=== PATIENT | female | born 1960 | race Caucasian/White ===

== ENCOUNTER → 2023-06-17 09:21 | Outpatient (REF) | payer BC, SELFPAY ==
[2023-06-17 10:43] LABS: Iron 103 ug/dl (37-170)
[2023-06-17 10:52] LABS: Percent Saturation 39 % (20-50); Total Iron Binding Capacity 259 ug/dl (265-497)
[2023-06-17 10:56] LABS: Free T4 0.87 ng/dl (0.78-2.19); Vitamin D, 25-OH*** 47.3 ng/mL (30-80)
[2023-06-17 11:10] LABS: TSH 1.21 uIU/ml (0.47-4.68)
[2023-06-17 11:19] LABS: Ferritin 62.3 ng/ml (11.1-264.0)
== END ==
LOC: REG 09:21
PROVIDERS: ATTENDING PHYSICIAN Physician Assistant
DX: Z00.00 Encounter for general adult medical examination without abnormal findings (principal); Z13.9 Encounter for screening, unspecified; R73.03 Prediabetes; Z85.3 Personal history of malignant neoplasm of breast; R91.1 Solitary pulmonary nodule; E78.5 Hyperlipidemia, unspecified; I10 Essential (primary) hypertension; K57.90 Diverticulosis of intestine, part unspecified, without perforation or abscess without bleeding
CPT/HCPCS: 36415; 82306; 82728; 83540; 83550; 84439; 84443

== ENCOUNTER → 2023-06-19 08:02 | Outpatient (REF) | payer BC, SELFPAY ==
[2023-06-19 08:20] LABS: % Basophils 0.6 % (0-2); % Eosinophils 3.2 % (0-6); % Immature Granulocytes 0.2 % (0-0.5); % Lymphocytes 44.7 % (20.5-51.1); % Monocytes 8.5 % (1.7-9.3); % Neutrophils 42.8 % (42.2-75.2); Absolute Eosinophils 0.2 10^3/uL (0-0.7); Absolute Lymphocytes 2.1 10^3/uL (1.2-3.4); Absolute Monocytes 0.4 10^3/uL (0.1-0.6); Hematocrit 39.2 % (37.0-47.0); Hemoglobin 12.9 g/dL (12.0-16.0); Mean Corp Hgb Conc. 32.9 g/dL (33.0-37.0); Mean Corpuscular Hgb 29.6 pg (27.0-31.0); Mean Corpuscular Volume 89.9 fL (81.0-99.0); Mean Platelet Volume 9.9 fL (7.4-10.4); Nucleated Red Blood Cells % 0 %; Platelet Count 253 10^3/uL (130-400); Red Blood Cell Count 4.36 10^6/uL (4.20-5.40); Red Cell Dist. Width 12.4 % (11.5-14.5); White Blood Cell Count 4.7 10^3/uL (4.8-10.8)
[2023-06-19 08:51] LABS: ALT (SGPT) 20 U/L (0-35); AST (SGOT) 25 U/L (14-36); Albumin 3.9 g/dl (3.5-5.0); Alkaline Phosphatase 81 U/L (38-126); Blood Urea Nitrogen 12 mg/dl (7-17); Calcium 9.7 mg/dl (8.4-10.2); Carbon Dioxide 30 mmol/L (22-30); Chloride 103 mmol/L (98-107); Glucose 108 mg/dl (70-99); HDL Cholesterol 60 mg/dl; LDL Cholesterol, Calculated 72 mg/dl; Potassium 4.6 mmol/L (3.5-5.1); Sodium 139 mmol/L (135-145); Total Bilirubin 1.5 mg/dl (0.2-1.3); Total Cholesterol 169 mg/dl (50-199); Total Protein 6.3 g/dl (6.3-8.2); Triglyceride 188 mg/dl (10-149); Very Low Density Lipoprotein 37 mg/dl (0-30); eGFR > 60.00
== END ==
LOC: REG 08:02
PROVIDERS: ATTENDING PHYSICIAN Physician Assistant
DX: Z00.00 Encounter for general adult medical examination without abnormal findings (principal); Z13.9 Encounter for screening, unspecified; R73.03 Prediabetes; Z85.3 Personal history of malignant neoplasm of breast; E78.5 Hyperlipidemia, unspecified; I10 Essential (primary) hypertension; K57.90 Diverticulosis of intestine, part unspecified, without perforation or abscess without bleeding
CPT/HCPCS: 36415; 80053; 80061; 83036; 85025

== ENCOUNTER → 2023-12-19 18:36 | Outpatient (REF) | payer BC, SELFPAY | LOC: WDC 18:36 | PROVIDERS: ATTENDING PHYSICIAN Physician Assistant | DX: Z12.31 Encounter for screening mammogram for malignant neoplasm of breast (principal) | CPT/HCPCS: 77063; 77067 ==

== ENCOUNTER → 2024-01-30 07:35 | Outpatient (REF) | payer BC, SELFPAY ==
[2024-01-30 08:20] LABS: % Basophils 0.6 % (0-2); % Eosinophils 3.2 % (0-6); % Immature Granulocytes 0.2 % (0-0.5); % Monocytes 7.8 % (1.7-9.3); % Neutrophils 39.2 % (42.2-75.2); Absolute Eosinophils 0.2 10^3/uL (0-0.7); Absolute Lymphocytes 2.5 10^3/uL (1.2-3.4); Absolute Monocytes 0.4 10^3/uL (0.1-0.6); Hematocrit 39.6 % (37.0-47.0); Hemoglobin 13.2 g/dL (12.0-16.0); Mean Corp Hgb Conc. 33.3 g/dL (33.0-37.0); Mean Corpuscular Hgb 29.1 pg (27.0-31.0); Mean Corpuscular Volume 87.2 fL (81.0-99.0); Mean Platelet Volume 9.9 fL (7.4-10.4); Nucleated Red Blood Cells % 0 %; Platelet Count 257 10^3/uL (130-400); Red Blood Cell Count 4.54 10^6/uL (4.20-5.40); Red Cell Dist. Width 12.4 % (11.5-14.5)
[2024-01-30 09:25] LABS: Glycohemoglobin (HgbA1c) 5.7 % (4.0-5.6)
[2024-01-30 10:23] LABS: ALT (SGPT) 42 U/L (0-35); AST (SGOT) 36 U/L (14-36); Albumin 4.5 g/dl (3.5-5.0); Alkaline Phosphatase 85 U/L (38-126); Blood Urea Nitrogen 17 mg/dl (7-17); Calcium 9.6 mg/dl (8.4-10.2); Carbon Dioxide 27 mmol/L (22-30); Chloride 103 mmol/L (98-107); Glucose 98 mg/dl (70-99); HDL Cholesterol 76 mg/dl; LDL Cholesterol, Calculated 111 mg/dl; Potassium 4.5 mmol/L (3.5-5.1); Sodium 141 mmol/L (135-145); Total Cholesterol 211 mg/dl (50-199); Total Protein 6.9 g/dl (6.3-8.2); Triglyceride 122 mg/dl (10-149); Very Low Density Lipoprotein 24 mg/dl (0-30); eGFR > 60.00
== END ==
LOC: REG 07:35
PROVIDERS: ATTENDING PHYSICIAN Family Medicine
DX: R73.03 Prediabetes (principal); E78.5 Hyperlipidemia, unspecified
CPT/HCPCS: 36415; 80053; 80061; 83036; 85025

== ENCOUNTER → 2024-02-18 14:27 | Outpatient (REF) | payer BC, SELFPAY | LOC: HWRAD 14:27 | PROVIDERS: ATTENDING PHYSICIAN Family Medicine | DX: M79.89 Other specified soft tissue disorders (principal) | CPT/HCPCS: 76536 ==

== ENCOUNTER → 2024-03-02 10:24 | Outpatient (REF) | payer BC, SELFPAY ==
[2024-03-02 12:13] LABS: Free T3 3.14 pg/ml (2.77-5.27); Free T4 0.79 ng/dl (0.78-2.19)
[2024-03-02 12:26] LABS: TSH 0.92 uIU/ml (0.47-4.68)
[2024-03-03 18:33] LABS: Thyroglobulin Antibodies <0.9 IU/mL (0.0-4.0); Thyroid Peroxidase Ab (TPO) <0.3 IU/mL (0.0-9.0)
== END ==
LOC: REG 10:24
PROVIDERS: ATTENDING PHYSICIAN Family Medicine
DX: R79.89 Other specified abnormal findings of blood chemistry (principal)
CPT/HCPCS: 36415; 84439; 84443; 84481; 86376; 86800

== ENCOUNTER → 2024-07-01 10:23 | Outpatient (REF) | payer BC, SELFPAY ==
[2024-07-01 11:24] LABS: % Basophils 0.6 % (0-2); % Immature Granulocytes 0.2 % (0-0.5); % Lymphocytes 37.1 % (20.5-51.1); % Monocytes 6.6 % (1.7-9.3); % Neutrophils 50.5 % (42.2-75.2); Absolute Eosinophils 0.3 10^3/uL (0-0.7); Absolute Lymphocytes 1.9 10^3/uL (1.2-3.4); Absolute Monocytes 0.3 10^3/uL (0.1-0.6); Absolute Neutrophils 2.6 10^3/uL (1.4-6.5); Hematocrit 43.1 % (37.0-47.0); Hemoglobin 14.5 g/dL (12.0-16.0); Mean Corp Hgb Conc. 33.6 g/dL (33.0-37.0); Mean Corpuscular Hgb 30.1 pg (27.0-31.0); Mean Corpuscular Volume 89.4 fL (81.0-99.0); Mean Platelet Volume 9.9 fL (7.4-10.4); Nucleated Red Blood Cells % 0 %; Platelet Count 254 10^3/uL (130-400); Red Blood Cell Count 4.82 10^6/uL (4.20-5.40); Red Cell Dist. Width 12.5 % (11.5-14.5); White Blood Cell Count 5.2 10^3/uL (4.8-10.8)
[2024-07-01 11:31] LABS: Urine Albumin Negative (Neg - Trace); Urine Bilirubin Negative (Negative); Urine Character Clear (Clear); Urine Color Yellow; Urine Glucose Negative (Negative); Urine Ketone Negative (Negative); Urine Leukocyte Negative (Negative); Urine Nitrite Negative (Negative); Urine Occult Blood Negative (Negative); Urine Urobilinogen Negative (Neg - 1+)
[2024-07-01 11:49] LABS: Erythrocyte Sed Rate 8 mm/hour (0-20)
[2024-07-01 12:06] LABS: ALT (SGPT) 46 U/L (0-35); AST (SGOT) 36 U/L (14-36); Albumin 4.4 g/dl (3.5-5.0); Alkaline Phosphatase 111 U/L (38-126); Blood Urea Nitrogen 17 mg/dl (7-17); Carbon Dioxide 28 mmol/L (22-30); Chloride 104 mmol/L (98-107); Glucose 112 mg/dl (70-99); HDL Cholesterol 71 mg/dl; Iron 128 ug/dl (37-170); LDL Cholesterol, Calculated 70 mg/dl; Magnesium 2.3 mg/dl (1.6-2.3); Phosphorus 3.4 mg/dl (2.5-4.5); Potassium 5.2 mmol/L (3.5-5.1); Sodium 138 mmol/L (135-145); Total Bilirubin 1.9 mg/dl (0.2-1.3); Total Cholesterol 171 mg/dl (50-199); Total Protein 7.2 g/dl (6.3-8.2); Triglyceride 153 mg/dl (10-149); Uric Acid 4.9 mg/dl (2.5-6.2); Very Low Density Lipoprotein 30 mg/dl (0-30); eGFR > 60.00
[2024-07-01 12:15] LABS: Percent Saturation 49 % (20-50); Total Iron Binding Capacity 261 ug/dl (265-497)
[2024-07-01 12:19] LABS: CKMB 0.9 ng/ml (0.0-3.4)
[2024-07-01 12:26] LABS: Free T4 0.84 ng/dl (0.78-2.19); Vitamin D, 25-OH*** 43.1 ng/mL (30-80)
[2024-07-01 12:39] LABS: TSH 1.17 uIU/ml (0.47-4.68)
[2024-07-01 12:43] LABS: Ferritin 60.1 ng/ml (11.1-264.0)
[2024-07-01 13:04] LABS: Glycohemoglobin (HgbA1c) 5.8 % (4.0-5.6)
[2024-07-01 13:15] LABS: Vitamin B12 445 pg/ml (239-931)
[2024-07-02 19:32] LABS: Hepatitis C Antibody Negative (Negative)
[2024-07-04 03:11] LABS: ANA, IgG Reflex to HEp-2 None Detected (None Detected)
== END ==
LOC: REG 10:23
PROVIDERS: ATTENDING PHYSICIAN Family Medicine
DX: I35.8 Other nonrheumatic aortic valve disorders (principal); Z00.00 Encounter for general adult medical examination without abnormal findings; E53.8 Deficiency of other specified B group vitamins; R73.03 Prediabetes; E55.9 Vitamin D deficiency, unspecified; G35 Multiple sclerosis; R79.89 Other specified abnormal findings of blood chemistry; M25.50 Pain in unspecified joint; E78.5 Hyperlipidemia, unspecified; R35.0 Frequency of micturition
CPT/HCPCS: 36415; 80053; 80061; 81003; 82306; 82553; 82607; 82728; 82746; 83036; 83521; 83540; 83550; 83735; 84100; 84155; 84156; 84165; 84439; 84443; 84550; 85025; 85652; 86038; 86335; 86803; 93306

== ENCOUNTER → 2024-07-10 06:44 | Outpatient (REF) | payer BC, SELFPAY | LOC: HWRAD 06:44 | PROVIDERS: ATTENDING PHYSICIAN Family Medicine | DX: R74.01 Elevation of levels of liver transaminase levels (principal) | CPT/HCPCS: 76700 ==

== ENCOUNTER → 2024-07-20 10:52 | Outpatient (REF) | payer BC, SELFPAY | LOC: HWRAD 10:52 | PROVIDERS: ATTENDING PHYSICIAN Family Medicine | DX: R91.1 Solitary pulmonary nodule (principal) | CPT/HCPCS: 71250 ==

== ENCOUNTER → 2024-08-19 09:34 | Outpatient (REF) | payer BC, SELFPAY ==
[2024-08-19 10:39] LABS: Erythrocyte Sed Rate 5 mm/hour (0-20)
[2024-08-19 11:06] LABS: ALT (SGPT) 32 U/L (0-35); AST (SGOT) 27 U/L (14-36); Albumin 4.5 g/dl (3.5-5.0); Alkaline Phosphatase 86 U/L (38-126); Blood Urea Nitrogen 17 mg/dl (7-17); Calcium 9.6 mg/dl (8.4-10.2); Carbon Dioxide 27 mmol/L (22-30); Chloride 104 mmol/L (98-107); Glucose 121 mg/dl (70-99); Potassium 4.5 mmol/L (3.5-5.1); Sodium 141 mmol/L (135-145); Total Bilirubin 1.3 mg/dl (0.2-1.3); Total Protein 6.7 g/dl (6.3-8.2); eGFR > 60.00
[2024-08-19 11:09] LABS: C-Reactive Protein < 5.00 mg/L (0.0-10.00)
[2024-08-19 19:42] LABS: Rheumatoid Agglutinin Less Than 10 IU (<10 IU)
[2024-08-22 02:52] LABS: Albumin 3.86 g/dL (3.75-5.01); Alpha 1 Globulin 0.31 g/dL (0.19-0.46); Alpha 2 Globulin 0.71 g/dL (0.48-1.05); Free Kappa Light Chains,Quant 16.78 mg/L (3.30-19.40); Free Lambda Light Chains,Quant 11.61 mg/L (5.71-26.30); IgA 121 mg/dL (68-408); IgG 967 mg/dL (768-1632); IgM 78 mg/dL (35-263); Immunofixation Electrophoresis IFE Done; Kappa/Lambda Fr Light Ratio 1.45 (0.26-1.65); Total Protein-Electrophoresis 6.5 g/dL (6.3-8.2)
== END ==
LOC: REG 09:34
PROVIDERS: ATTENDING PHYSICIAN Internal Medicine Hematology & Oncology; FAMILY PHYSICIAN Family Medicine
DX: D72.819 Decreased white blood cell count, unspecified (principal); G60.3 Idiopathic progressive neuropathy; D47.2 Monoclonal gammopathy
CPT/HCPCS: 36415; 80053; 82784; 83521; 84155; 84165; 85652; 86140; 86334; 86430

== ENCOUNTER → 2024-12-21 14:22 | Outpatient (REF) | payer BC, SELFPAY | LOC: WDC 14:22 | PROVIDERS: ATTENDING PHYSICIAN Family Medicine | DX: Z12.31 Encounter for screening mammogram for malignant neoplasm of breast (principal) | CPT/HCPCS: 77063; 77067 ==

== ENCOUNTER → 2024-12-29 11:03 | Outpatient (REF) | payer BC, SELFPAY ==
[2024-12-29 12:04] LABS: Hematocrit 36.8 % (37.0-47.0); Hemoglobin 12.4 g/dL (12.0-16.0); Mean Corp Hgb Conc. 33.7 g/dL (33.0-37.0); Mean Corpuscular Volume 90.0 fL (81.0-99.0); Nucleated Red Blood Cells % 0 %; Platelet Count 214 10^3/uL (130-400); Red Cell Dist. Width 12.3 % (11.5-14.5)
[2024-12-29 12:39] LABS: ALT (SGPT) 51 U/L (0-35); AST (SGOT) 37 U/L (14-36); Albumin 4.3 g/dl (3.5-5.0); Alkaline Phosphatase 105 U/L (38-126); Blood Urea Nitrogen 15 mg/dl (7-17); Calcium 9.8 mg/dl (8.4-10.2); Carbon Dioxide 29 mmol/L (22-30); Chloride 106 mmol/L (98-107); Glucose 106 mg/dl (70-99); Potassium 5.0 mmol/L (3.5-5.1); Sodium 139 mmol/L (135-145); Total Protein 6.9 g/dl (6.3-8.2); eGFR > 60.00
== END ==
LOC: REG 11:03
PROVIDERS: ATTENDING PHYSICIAN Specialist; FAMILY PHYSICIAN Family Medicine
DX: K80.80 Other cholelithiasis without obstruction (principal)
CPT/HCPCS: 36415; 80053; 85025